=== PATIENT | female | born 1985 | race Caucasian/White ===

== ENCOUNTER 2017-06-02 10:45 | Day surgery (SDC) | payer OTHER ==
[2017-06-02 11:13] VITALS: BMI 34.1
== END 2017-06-02 14:25 | disposition home or self-care (01) ==
LOC: L&D/OP 10:45
PROVIDERS: ATTEND Family Medicine
DX: O9A.213 Injury, poisoning and certain other consequences of external causes complicating pregnancy, third trimester (principal); Z3A.32 32 weeks gestation of pregnancy; Z88.2 Allergy status to sulfonamides; W10.9XXA Fall (on) (from) unspecified stairs and steps, initial encounter
CPT/HCPCS: 99281

== ENCOUNTER 2017-07-27 21:00 | Inpatient (IN) | payer OTHER ==
[2017-07-27] MEDS: Lactated Ringer's 1,000 ML IV SCH (10:59)
[2017-07-27 22:12] VITALS: BMI 34.1
[2017-07-27] MEDS ORDERED: LR 500 ML/Oxytocin 10 units 500 ML IV SCH ×2 (22:21)
[2017-07-27] MEDS ORDERED: Misoprostol 200 MCG TAB PR PRN (22:21)
[2017-07-27] MEDS ORDERED: Promethazine HCl 25 MG/ML VIAL IM PRN (22:21)
[2017-07-27] MEDS ORDERED: Lidocaine 1% (PF) 30 ML VIAL SC PRN (22:21)
[2017-07-27] MEDS ORDERED: HYDROcodone/Acetaminophen 5/325 mg Tablet PO PRN (22:21)
[2017-07-27] MEDS ORDERED: Ibuprofen 800 MG TAB PO PRN (22:21)
[2017-07-27] MEDS ORDERED: Ondansetron HCl/PF 4 MG/2 ML Vial IVP PRN (22:21)
[2017-07-27] MEDS ORDERED: Acetaminophen 500 MG TAB PO PRN (22:21)
[2017-07-27] MEDS ORDERED: Methylergonovine 0.2 MG/ML VIAL IM PRN (22:21)
[2017-07-27] MEDS ORDERED: Acetaminophen/Codeine 30-300mg Tablet PO PRN (22:21)
[2017-07-27] MEDS ORDERED: LR / Pitocin 40 units/1000 ml 1,000 ML IV PRN (22:21)
[2017-07-27] MEDS ORDERED: Zolpidem Tartrate 5 MG TAB PO PRN (22:21)
[2017-07-27 22:30] LABS: Hemoglobin 13.2 g/dL (12.0-16.0); Mean Corpuscular HGB CONC 35.1 g/dL (32.0-36.0); Mean Corpuscular Hemoglobin 31.9 pg (27.0-31.0); Mean Corpuscular Volume 90.7 fl (81.0-99.0); Mean Platelet Volume 9.1 fL (7.4-10.4); Platelet Count 135 thou/uL (130-400); RBC Distribution Width 11.8 % (11.5-14.5); Red Blood Cell (RBC) Count 4.13 mill/uL (4.20-5.40); White Blood Cell (WBC) Count 9.4 thou/uL (4.8-10.8)
[2017-07-27] MEDS ORDERED: Misoprostol 100 MCG TAB ONE (22:36)
[2017-07-27 22:40] LABS: ALT (SGPT) 17 U/L (8-55); AST (SGOT) 21 U/L (5-34); Albumin 3.6 g/dL (3.5-5.0); Alkaline Phosphatase 127 U/L (40-150); Bilirubin, Direct 0.1 mg/dL (0.1-0.3); Bilirubin, Total 0.2 mg/dL (0.2-1.2); Protein, Total 6.3 g/dL (6.0-8.3)
[2017-07-27] MEDS ORDERED: Penicillin G Potassium 5 MILL.UNITS in Sodium Chloride 0.9% 100 ML IVPB SCH (22:45)
[2017-07-27 22:59] LABS: Syphilis Antibody Nonreactive (Nonreactive); Syphilis Antibody Index 0.04 S/CO (<1.00 Non-Reactive)
[2017-07-27 23:09] LABS: HBSAg Index 0.31 S/CO (0-0.99); Hep B Surf Ag Non-Reactive S/CO (NonReactive)
[2017-07-28] MEDS: Misoprostol 100 MCG TAB VAG SCH ×5 (00:03→19:07)
[2017-07-28] MEDS ORDERED: Bupivacaine 0.5% 20 ML, fentaNYL Citrate/PF 400 MCG in Sodium Chloride 0.9% 72 ML EPIDURAL SCH (06:00)
[2017-07-28] MEDS ORDERED: DISCONTINUE ALL PREVIOUS NARCOTICS FS SCH (06:00)
[2017-07-28] MEDS: Lactated Ringer's 1,000 ML IV SCH ×2 (06:02→08:31)
[2017-07-28] MEDS ORDERED: Fentanyl 100 MCG/2 ML VIAL ONE (06:59)
[2017-07-28] MEDS ORDERED: Fentanyl 100 MCG/2 ML VIAL EPIDURAL PRN (07:20)
[2017-07-28] MEDS ORDERED: Lactated Ringer's 500 ML IV PRN (07:20)
[2017-07-28] MEDS ORDERED: ePHEDrine/0.9% NaCl/PF SYRINGE 50 mg/10 ml SLOW IVP PRN (07:20)
[2017-07-28] MEDS ORDERED: Naloxone HCl 0.4 mg/ml Vial IVP PRN (07:20)
[2017-07-28] MEDS ORDERED: Eucerin (Mineral Oil/Petrolatum,White) 30 gm Jar TOP PRN (07:20)
[2017-07-28] MEDS ORDERED: Acetaminophen 325 MG TAB PO PRN (07:20)
[2017-07-28] MEDS ORDERED: Fentanyl 4mcg/Marcaine 0.1% Cassette 100 ML EPIDURAL SCH (07:30)
[2017-07-28] MEDS ORDERED: Communication Order-Pharmacy FS SCH (07:30)
[2017-07-28] MEDS: Penicillin G 2.5 MILL.units 2.5 MILL.UNITS in Premix Bag 1 BAG IVPB SCH ×3 (08:31→12:38)
[2017-07-28] MEDS: LEVETIRACETAM 750 MG PO SCH (09:15)
[2017-07-28] MEDS ORDERED: LR / Pitocin 40 units/1000 ml 1,000 ML ONE (12:14)
[2017-07-28] MEDS ORDERED: Lidocaine 1% (PF) 30 ML VIAL ONE (12:14)
[2017-07-28] MEDS ORDERED: diphenhydrAMINE 25 MG CAP PO PRN (16:05)
[2017-07-28] MEDS ORDERED: Lanolin Ointment 7 GM TUBE TOP PRN (16:05)
[2017-07-28] MEDS ORDERED: Bisacodyl 10 MG SUPP PR PRN (16:05)
[2017-07-28] MEDS ORDERED: Acetaminophen/Codeine 30-300mg Tablet PO PRN (16:05)
[2017-07-28] MEDS ORDERED: Ondansetron HCl/PF 4 MG/2 ML Vial IVP PRN (16:05)
[2017-07-28] MEDS ORDERED: Milk Of Magnesia 30 ML UDCUP PO PRN (16:05)
[2017-07-28] MEDS ORDERED: Benzocaine/Menthol 20-0.5% 60 ML CAN TOP PRN (16:05)
[2017-07-28] MEDS ORDERED: Preparation H Ointment 28 GM TUBE PR PRN (16:05)
[2017-07-28] MEDS ORDERED: HYDROcodone/Acetaminophen 5/325 mg Tablet PO PRN (16:05)
[2017-07-28] MEDS ORDERED: LR / Pitocin 40 units/1000 ml 1,000 ML IV SCH (16:05)
[2017-07-28] MEDS: Ibuprofen 800 MG TAB PO SCH ×3 (17:12→23:14)
[2017-07-28] MEDS: Ferrous Sulfate 325 MG TAB PO SCH (19:06)
[2017-07-28] MEDS: Prenatal Vitamin 1 TAB PO SCH (19:06)
[2017-07-28] MEDS: Docusate Calcium (SURFAK) 240 MG CAP PO SCH ×2 (19:06→23:14)
[2017-07-29] MEDS: Ibuprofen 800 MG TAB PO SCH ×3 (06:13→22:06)
[2017-07-29] MEDS: Prenatal Vitamin 1 TAB PO SCH (08:14)
[2017-07-29] MEDS: LEVETIRACETAM 750 MG PO SCH ×2 (08:14→22:07)
[2017-07-29] MEDS: Docusate Calcium (SURFAK) 240 MG CAP PO SCH ×2 (08:14→22:06)
[2017-07-29] MEDS: Ferrous Sulfate 325 MG TAB PO SCH (10:44)
[2017-07-30] MEDS: Ibuprofen 800 MG TAB PO SCH (06:01)
[2017-07-30] MEDS: Ferrous Sulfate 325 MG TAB PO SCH (07:29)
[2017-07-30] MEDS ORDERED: ePHEDrine/0.9% NaCl/PF SYRINGE 50 mg/10 ml ONE (08:01)
[2017-07-30 08:04] VITALS: BP 91/52; TEMP 98.4
[2017-07-30] MEDS: Docusate Calcium (SURFAK) 240 MG CAP PO SCH (09:15)
[2017-07-30] MEDS: Prenatal Vitamin 1 TAB PO SCH (09:15)
[2017-07-30] MEDS: LEVETIRACETAM 750 MG PO SCH (09:16)
== END 2017-07-30 14:00 | disposition home or self-care (01) | DRG 775 ==
LOC: L&D 21:12 → 3SW 07-28 18:17
PROVIDERS: ADMIT Family Medicine; ATTEND Family Medicine
PROC: 10E0XZZ Delivery of Products of Conception, External Approach (ICD-10-PCS; principal; 2017-07-28)
PROC: 0HQ9XZZ Repair Perineum Skin, External Approach (ICD-10-PCS; 2017-07-28)
PROC: 3E0P7VZ Introduction of Hormone into Female Reproductive, Via Natural or Artificial Opening (ICD-10-PCS; 2017-07-28)
DX: O99.354 Diseases of the nervous system complicating childbirth (principal); G40.909 Epilepsy, unspecified, not intractable, without status epilepticus; O48.0 Post-term pregnancy; Z3A.40 40 weeks gestation of pregnancy; O70.0 First degree perineal laceration during delivery; Z37.0 Single live birth; Z79.899 Other long term (current) drug therapy
CPT/HCPCS: 36415; 51702; 80076; 80177; 84443; 85027; 85461; 86780; 87340; 90384; 96372; J2001; J2540; J3010; J3490; J7050; J7120

== ENCOUNTER 2018-06-28 12:35 | Outpatient (CLI) | payer OTHER | END 2018-06-28 12:36 | disposition home or self-care (01) | PROVIDERS: ATTEND Family Medicine | DX: R00.2 Palpitations (principal) | CPT/HCPCS: 93225; 93226 ==

== ENCOUNTER 2018-06-29 12:42 | Outpatient (CLI) | payer OTHER | END 2018-06-29 12:43 | disposition home or self-care (01) | LOC: ULT 12:42 | PROVIDERS: ATTEND Family Medicine | DX: R00.2 Palpitations (principal); I08.1 Rheumatic disorders of both mitral and tricuspid valves | CPT/HCPCS: 93306 ==

== ENCOUNTER 2018-11-18 13:17 | Outpatient (CLI) | payer OTHER ==
[2018-11-18] MEDS ORDERED: Gadobenate Dimeglumine 529 MG/1 ML (20ML VIAL) ONE (13:42)
--- NOTE | 2018-11-18 16:09 | MRI ---
MRI BRAIN AND SELLA WITH AND WITHOUT CONTRAST: 11/18/18 HISTORY: 25-year-old female with ICD-10: 253.0, anterior pituitary adenoma syndrome. TECHNIQUE: Multiple sequences obtained in axial, sagittal, and coronal planes; pre and post IV injection of gado linium-based contrast agent: 17 mL Multihance. In addition to standard whole brain sequences, thin sl ice coronal and sagittal sequences obtained through the sella turcica, including dynamic sequences. COMPARISON: 11/17/12, 02/10/11, 08/26/10, 11/16/05, and 05/26/05. FINDINGS: The ventricles are normal in size and configuration. There is no major intraaxial signal abnormality , restricted diffusion, abnormal intraaxial enhancement, mass, midline shift or any other mass effect , recent intraaxial hemorrhage, or extraaxial fluid collection. There is a well-circumscribed, round lesion located centrally and slightly anteriorly within the pituitary gland, measuring approximately 0.6 x 0.6 x 0.5 cm. Allowing for slight differences in caliper positioning and depending on the parti cular sequence measured, this has probably not significantly change compared to 11/17/12. It does appea r to be slightly larger than on older studies of 2005. It does not enhance. It is isointense to surro unding pituitary tissue and brain on precontrast T1WI, and therefore is not visible on that sequence. It is moderately hyperintense on FLAIR, and hyperintense on T2WI. It has not changed since 11/17/12. T here is a minimal superior bulge in the diaphragma sellae, but that, and the overall size of the pitu itary gland, are normal for a female of this age group. Infundibular stalk is normal. Optic chiasm an d mammillary bodies are normal. IMPRESSION: l. Small pituitary lesion. Uncertain whether this is a pituitary cyst (with proteinaceous contents), such as a Rathke's cleft cyst, or a pituitary microadenoma. 2. No interval change since 08/26/10. 3. The brain is normal. jn[] POS: CET
== END 2018-11-18 13:18 | disposition home or self-care (01) ==
LOC: BICMRI 13:17
PROVIDERS: ATTEND Family Medicine
DX: D35.2 Benign neoplasm of pituitary gland (principal); E23.7 Disorder of pituitary gland, unspecified
CPT/HCPCS: 70553

== ENCOUNTER 2022-07-13 09:25 | Outpatient (CLI) | payer BC | END 2022-07-13 09:26 | disposition home or self-care (01) | LOC: SCSMRI 09:25 | PROVIDERS: ATTEND Family Medicine | DX: D35.2 Benign neoplasm of pituitary gland (principal) | CPT/HCPCS: 70553 ==

== ENCOUNTER 2023-02-14 15:34 | Emergency (ER) | payer BC ==
[2023-02-14 16:07] LABS: #Eosinphils 0.1 thou/uL (0.0-0.7); #Monocytes 0.4 thou/uL (0.11-0.59); #Neutrophils 6.6 thou/uL (1.40-6.50); %Basophils 0.1 % (0.0-1.0); %Eosinophils 1.1 % (0.0-10.0); %Lymphocytes 15.4 % (21.0-51.0); %Monocytes 4.4 % (0.0-10.0); %Neutrophils 78.8 % (42.0-75.0); Hematocrit 39.5 % (36.0-47.0); Hemoglobin 13.5 g/dL (12.0-16.0); Mean Corpuscular HGB CONC 34.2 g/dL (32.0-36.0); Mean Corpuscular Hemoglobin 29.9 pg (27.0-31.0); Mean Corpuscular Volume 87.4 fl (78.0-98.0); Mean Platelet Volume 10.3 fL (7.4-10.4); Platelet Count 209 10x3/uL (130-400); RBC Distribution Width 12.4 % (11.5-14.5); Red Blood Cell (RBC) Count 4.52 mill/uL (4.20-5.40); White Blood Cell (WBC) Count 8.4 10x3/uL (4.8-10.8)
[2023-02-14 16:30] LABS: ALT (SGPT) 20 U/L (8-55); AST (SGOT) 18 U/L (5-34); Albumin 4.6 g/dL (3.5-5.0); Alkaline Phosphatase 42 U/L (40-110); Anion Gap 13 mmol/L (10-20); BUN (Urea Nitrogen) 7 mg/dL (7.0-18.7); Bilirubin, Total 0.2 mg/dL (0.2-1.2); Calc. Creatinine Clearance 0 mL/min (70-130); Calcium 9.7 mg/dL (7.8-10.44); Carbon Dioxide 24 mmol/L (22-29); Chloride 101 mmol/L (98-107); Estimated GFR 117; Globulin 2.7 g/dL (2.4-3.5); Glucose 134 mg/dL (70-105); Potassium 3.4 mmol/L (3.5-5.1); Protein, Total 7.3 g/dL (6.0-8.3); Sodium 135 mmol/L (136-145)
== END 2023-02-14 17:18 | disposition home or self-care (01) ==
LOC: ERS 15:34
DX: R10.31 Right lower quadrant pain (principal)
CPT/HCPCS: 76856; 80053; 85025; 93976

== ENCOUNTER 2024-11-17 14:38 | Outpatient (CLI) | payer BC | END 2024-11-17 14:39 | disposition home or self-care (01) | LOC: SCSMRI 14:38 | PROVIDERS: ATTEND Physician Assistant | DX: D35.2 Benign neoplasm of pituitary gland (principal); E23.7 Disorder of pituitary gland, unspecified | CPT/HCPCS: 70553 ==